=== PATIENT | female | born 1960 | race Caucasian/White ===

== ENCOUNTER 2020-11-16 05:55 | Inpatient (IN) | payer OTHER ==
[~2020-11-16] VITALS: Ht 165.1 cm; Wt 77.0 kg
[~2020-11-16 05:55] MED LIST: ABILIFY10 MG PO; ABILIFY15 MG PO; ACETAMINOPHEN325 M1 PO; ADULT LOW DOSE81 MG PO; ADVAIR 250-501 EACH INH; ALBUTEROL2.5 MG/3 M IH; ALPRAZOLAM1 M2 PO; APAP500 PO; AVELOX 400 MG400 M1 PO; BAYER CHEWABLE81 MG PO; CARAFATE 1 GM TA1 G1 PO; COLACE 100 MG100 MG PO; COLACE100 MG PO; CYMBALTA30 MG PO; CYMBALTA60 MG PO; DUONEB 2.5-0.5 M3 ML INH; IMITREX100 MG PO; JANUVIA100 MG PO; LANTUS SUBQ; LAXATIVE PEG 3317 GM PO; LEVAQUIN 500 M500 M2 PO; LEVAQUIN 500 M500 M5 PO; LEVOXYL75 MCG PO; LISINOPRIL2.5 MG; MAALOX ADVANCE355 M1 PO; MEDROLDOSEPACK PO; MIRALAX17 GM PO; MUCINEX600 MG PO; NAPRO60 GM; NAPROSYN250 MG PO; NAPROSYN500 MG PO; NICOTINE TRANSD14 M1 TRANSDERM; NICOTINE TRANSD21 M1 TD; NORCO 5-325 TA1 EACH PO; NOVOLOG100 UNIT/1; NOVOLOG100 UNIT/1 SUBQ; OMEPRAZOLE40 MG PO; PRAVACHOL40 MG PO; PREDNISONE 10 M10 M1; PREDNISONE 10 M10 M1 PO; PREDNISONE 10 M10 MG; PREDNISONE 20 M20 M1 PO; PREDNISONE 20 M20 MG PO; PREDNISONE 5 MG5 M1; PREDNISONE50 MG PO; PRILOSEC40 MG PO; PROTONIX40 M2 PO; QUETIAPINE FUM300 MG PO; REGLAN 10 MG TA10 MG PO; REGLAN 5 MG TAB5 MG PO; RESTORIL30 MG PO; RESTORIL7.5 MG PO; SEROQUEL 100 M100 M1 PO; SEROQUEL200 MG PO; SIMETHICON CHEW80 MG PO; SONATA5 M1 PO; SPIRIVA INH; TOPROL XL50 MG PO; ULTRAM 50MG TAB50 MG PO; VICODIN 5-3001 EACH PO; XANAX 0.5 MG0.5 M1 PO; XANAX1 MG PO; ZESTRIL20 MG PO; ZOFRAN ODT4 MG PO; ZOFRAN4 MG PO; ZOFRAN8 MG PO; ZPAK PO
[2020-11-16 05:56] VITALS: BP 137/83
[2020-11-16 06:24] LABS: HCO3 23.1 mmol/L (22.0-26.0); PCO2 45.1 mmHg (35.0-45.0); PO2 73.2 mmHg (80.0-100.0); sO2 93.6 % (92.0-98.0)
[2020-11-16 06:25] LABS: pH 7.327 (7.360-7.450)
[2020-11-16 06:27] LABS: ABSOLUTE NEUTROPHILS 6.3 thou/uL (1.4-8.2); BASOPHILS 0.1 % (0.0-2.0); HEMOGLOBIN 13.2 gm/dL (12.0-15.0); LYMPHOCYTES 26.9 % (24.0-44.0); MCH 30.1 pg (26.0-34.0); MCV 91.1 fL (80.0-100.0); MONOCYTES 4.5 % (1.0-8.0); PLATELET COUNT 319 thou/uL (150-400); POLYS 68.5 % (36.0-66.0); RBC 4.39 mil/uL (4.20-5.00); RDW 16.2 % (10.5-14.5); WBC 9.1 thou/uL (4.0-11.0)
[2020-11-16 06:34] LABS: ANION GAP 10 mmol/L (7-16); BUN 8 mg/dL (7-18); CALCIUM 8.6 mg/dL (8.5-10.1); CHLORIDE 104 mmol/L (98-107); CO2 25 mmol/L (21-32); CREATININE 0.8 mg/dL (0.6-1.0); GLUCOSE 170 mg/dL (74-106); POTASSIUM 3.7 mmol/L (3.5-5.1); SODIUM 139 mmol/L (136-145)
[2020-11-16 06:45] LABS: ALBUMIN 3.1 g/dL (3.4-5.0); DIRECT BILIRUBIN < 0.1 mg/dL (<0.1-0.2); LIPASE 53 U/L (73-393); MAGNESIUM 1.9 mg/dL (1.8-2.4); PHOSPHORUS 3.6 mg/dL (2.6-4.7); SGOT 9 U/L (15-37); SGPT 14 U/L (14-59); TOTAL BILIRUBIN 0.2 mg/dL (0.2-1.0); TROPONIN-I <0.06 ng/mL (<0.06)
[2020-11-16 09:50] VITALS: BP 118/58
--- NOTE | 2020-11-16 10:21 | EKG ---
[place] [address] [facility] [place] [address] ELECTROCARDIOGRAM REPORT Name: SANDRA ARMAS Room #: 170-6 ADM IN M.R.#: [id number] Admission: 11/16/20 Attend Phys: Pari Byers Discharge: Date of : 58 Report #: [id number] [facility] ED Test Date: 2020-11-16 Test Time: 09:56:25 Pat Name: SANDRA ARMAS Department: Room: 170 Gender: F Pin Game Machine Inspector: RAMIRO AGUILERA : 1960 Requested By: Braxton Gonzalez Order Number: [id number] MD: Thom Wray Measurements Intervals Dinosaur Rate: 71 P: 18 FL: 172 QRS: -28 QRSD: 100 T: 35 QT: 436 QTc: 474 Interpretive Statements Sinus rhythm Borderline left axis deviation Anterior infarct, old Compared to ECG 03/19/2014 13:17:13 Fusion complex(es) no longer present Myocardial infarct finding still present Electronically Signed On 11-16-2020 10:20:58 CDT by Thom Wray [email or web address] <ELECTRONICALLY SIGNED> By: Thom Wray MD, [facility] 11/16/20 1020 [phone] Thom Wray MD, [facility] /[facility]
[2020-11-16 15:13] VITALS: BP 131/68
[2020-11-16 17:43] LABS: BE(vivo) -1.1 mmol/L (-2 to +3); HCO3 24.5 mmol/L (22.0-26.0); PCO2 44.1 mmHg (35.0-45.0); PO2 59.2 mmHg (80.0-100.0); pH 7.362 (7.360-7.450); sO2 89.7 % (92.0-98.0)
--- NOTE | 2020-11-16 19:22 | NUR ---
PT ADMITTED FROM ER FOR SOB , PT IS A&OX3 ( PERSON, PLACE AND TIME), PT IS ON O2 6L/MIN/NC TO KEEP O2SAT 92-95%, PT 'S VS ARE STABLE, PT DENIES PAIN AT DAY SHIFT, PT HAS SOB WITH ACTIVITIES,
[2020-11-16 19:28] VITALS: BP 77/56
[2020-11-16 20:30] VITALS: BP 130/68
[2020-11-16 23:43] VITALS: BP 111/72
--- NOTE | 2020-11-17 03:43 | NUR ---
Patient making slow progress. Oxygenation optimal with 6L/Hi megan cannula. Short of breath with activity. Up to BSC x 1 assist. High fall risks, bed alarm non functional. Calls out appropriately for need to get out of bed. Slept well after prn Xanax. Swallowed oral medications without difficulty.
[2020-11-17 04:20] VITALS: BP 136/83
[2020-11-17 05:14] LABS: HEMATOCRIT 38.4 % (37.0-47.0); HEMOGLOBIN 12.6 gm/dL (12.0-15.0); MCH 30.1 pg (26.0-34.0); MCHC 32.8 g/dL (28.0-37.0); MCV 91.7 fL (80.0-100.0); RBC 4.19 mil/uL (4.20-5.00); RDW 16.5 % (10.5-14.5); WBC 10.7 thou/uL (4.0-11.0)
[2020-11-17 05:26] LABS: CALCIUM 8.5 mg/dL (8.5-10.1); CREATININE 0.7 mg/dL (0.6-1.0)
[2020-11-17 05:48] LABS: POTASSIUM 4.5 mmol/L (3.5-5.1)
[2020-11-17 08:30] VITALS: BP 144/72
[2020-11-17 09:20] LABS: BE(vivo) 0 mmol/L (-2 to +3); PCO2 37.2 mmHg (35.0-45.0); PO2 58.8 mmHg (80.0-100.0); pH 7.428 (7.360-7.450); sO2 91.3 % (92.0-98.0)
[2020-11-17 11:45] VITALS: BP 126/79
--- NOTE | 2020-11-17 11:59 | NUR ---
INITIAL ASSESSMENT: MANN reviewed chart and spoke with nursing and attending physician. Pt was admitted from home due to respiratory failure. Pt with hx of COPD. Pt is currently on 6L of O2. Pt is on IV abx. Pt has not received COVID vaccination. SW met with pt at bedside. Introduced role of SW. Pt is alert/orientated x 4. Pt reports she lives at home alone. Prior to admission, pt was independent with ADLs. Pt does have a walker and is normally on O2 at home. Pt's O2 is provided by [employer] [facility]. No stairs in her home. No hx of HH services or post-acute placement. Pt does not currently have a PCP. Pt states her insurance recently changed and she has yet to get established with a new PCP who is in-network with her insurance. Pt now has [employer] Medicare. Pt has Healthcare DPOA ppwk filled out and would like for it to be notarized. Pt has appointed her dtr, Marian as her DPOA. SW received approval from pt to call her dtrMarian. Marian had left voice message for SW to request DPOA ppwk to be notarized/witnessed. Nursing to call spiritual care or house cleaner for form to be notarized. MANN spoke with Marian, via phone to provide update and discuss DPOA ppwk. Marian verbalized understanding. MANN requested PT/OT evals to be ordered to evaluate pt for discharge needs. Will need prior auth for post-acute placement if needed. MANN is following to assist as needed with discharge planning.
--- NOTE | 2020-11-17 19:17 | NUR ---
RN ASSUMED PT'S CARE AT 0700-1900PM, PT IS A&OX4, PT IS ON O2 5L/MIN/NC , PT'S SOB HAS IMPROVED, PT IS CONTINUING IV ABX AND ANXIETY MANAGEMENT, PT'S VS ARE STABLE AT DAY SHIFT.
[2020-11-17 19:30] VITALS: BP 139/84
[2020-11-17 23:57] VITALS: BP 129/80
--- NOTE | 2020-11-18 03:34 | NUR ---
PROGRESS PT A/O X3, VSS, AFEBRILE, TELE INTACT READING /SRSB WITH RATES IN 50'S TO 60'S. LUNGS ARE COARSE IN [place]PPER [place], WITH INSPIRATORY WHEEZES AND A HARSH NON PRODUCTIVE COUGH. PT ON 5 TO 6 LITERS OF 02 SATS IN LOW 90'S. PT DENIES SOB AT REST AND IS BREATHING WITHOUT DIFFICULTY. IVF'S CONTINUE. ACCUCHECKS AND SSI CONTINUE. PT UP WITH 1 TO BSC. CONTINUE POC.
[2020-11-18 04:20] VITALS: BP 137/78
[2020-11-18 07:23] VITALS: BP 106/81
[2020-11-18 11:24] VITALS: BP 127/69
--- NOTE | 2020-11-18 13:17 | NUR ---
MANN reviewed chart and spoke with nursing and attending physician. Pt is slowly progressing towards goals for discharge. Pt is on 5L of O2. Pt is on IV abx and IV steroids. MANN met with pt at bedside to discuss discharge plan. Pt might be ready to discharge home over the weekend. Pt would like to have HH arranged. SW verified pt's home address. Pt does not currently have a PCP. SW explained that HH will most likely not accept pt without at PCP. Pt verbalized undestanding. MANN faxed HH referral to [facility] and spoke with intake. HH referral to be reviewed. Pt has home O2 in place through [employer] [facility]. If pt needs a portable tank for transportation home, [facility] will need to be called. MANN is following to assist as needed with discharge planning. [facility] HH-- [facility] (O2)--
[2020-11-18] MEDS ORDERED: ALPRAZOLAM XR3 MG PO (14:58)
--- NOTE | 2020-11-18 18:34 | NUR ---
RN ASSUMED PT'S CARE AT 0700, PT IS A&OX4, PT IS ON O2 5L/MIN/NC, PT GETS UP TO USE BSC, PT 'S VS ARE STABLE, PT IS CONTINUING IV ABX AND ANXIETY MANAGEMENT, PT DENIES PAIN AND SOB AT THIS TIME.
[2020-11-18 20:25] VITALS: BP 135/74
--- NOTE | 2020-11-19 01:23 | NUR ---
PT ALERT AND ORIENTED X4. PT RESTING QUIETLY PRESENTLY. NO S/S ANXIETY. NO C/O PAIN. UNLABORED ON 5LNC. BED DOWN CALL. LIGHT IN REACH. BED ALARM IS ON. BLADDER SCANED PT SINCE SHE DID NOT VOID WHEN SHE GOT UP TO BSC. SCANNED 174. LAUREN OFFER BSC IN AM AGAIN. NO S/S DISTRESS PRESENTLY.
[2020-11-19 04:02] VITALS: BP 136/71
--- NOTE | 2020-11-19 04:22 | NUR ---
PT PROGRESSING SLOWLY TOWARDS D/C GOALS. A&OX4. VSS. AFEBRILE. UNLABORED ON LNC. NO ANXIETY NOTED PRESENTLY. DENIED PAIN. WILL CONTINUE TO MONITOR PT FOR CHANGES.
--- NOTE | 2020-11-19 07:10 | NUR ---
RT FOUND PATIENT ON 5L. RT LOWERED OXYGEN TO 4L. PATIENT USES 4L AT HOME PATIENT HAS A JUNKY NPC. NO COMPLAINTS OF SHORTNESS OF BREATH.
[2020-11-19 07:43] VITALS: BP 143/73
[2020-11-19] MEDS ORDERED: IPRAT-ALBUT 0.5-3 ML INH (08:51)
[2020-11-19] MEDS ORDERED: PREDNISONE 20 M20 MG PO (08:52)
[2020-11-19] MEDS ORDERED: CEFUROXIME500 MG PO (08:52)
--- NOTE | 2020-11-19 10:41 | NUR ---
RT GIVE OXYGEN TANK TO PATIENT FOR CAR RIDE HOME CONSENT SIGNED.
[2020-11-19 10:47] VITALS: BP 143/73
[2020-11-19] MEDS ORDERED: NICOTINE1 EACH TRANSDERM (10:51)
--- NOTE | 2020-11-19 12:38 | NUR ---
RN ASSUMED PT'S CARE AT 0700AM, PT IS A&OX4, PT IS ON O2 4L/MIN/NC, PT'S SOB AND COUGHING HAVE IMPROVED, PT IS CONTINUING IV ABX AND ANXIETY MANAGEMENT, RN RECEIVED ORDER TO DC PT TO HOME, PT'S DAUGHTER WILL IMPORT COORDINATOR PT SOON, PT HAS O2 FROM RT FOR TRANSPORTATION TO HOME, PT HAS O2 AT HOME, PT UNDERSTANDS DC TEACHING WELL. PT DENIES PAIN AND SOB BY THIS TIME.
--- NOTE | 2020-11-19 14:03 | NUR ---
PT HAD A GOOD LUNCH, BOWLING BALL MOLD ASSEMBLER SENT PT WITH O2 4L/MIN/NC BY W/C TO MEET PT'S MARIANA IN HOSPITAL ER OUTSIDE DOOR TO GO HOME AT 1330PM.
== END 2020-11-19 14:16 | disposition home health service (06) | DRG 871 ==
LOC: ER 05:55 → EROBS 09:35 → 3W 09:35
PROVIDERS: Emergency Medicine; Internal Medicine Pulmonary Disease; ADMIT Hospitalist; ATTEND Hospitalist
PROC: 5A0935A Assistance with Respiratory Ventilation, Less than 24 Consecutive Hours, High Flow/Velocity Cannula (ICD-10-PCS; principal; 2020-11-16)
DX: A41.9 Sepsis, unspecified organism (principal); J18.9 Pneumonia, unspecified organism; J96.01 Acute respiratory failure with hypoxia; J96.02 Acute respiratory failure with hypercapnia; J44.1 Chronic obstructive pulmonary disease with (acute) exacerbation; J44.0 Chronic obstructive pulmonary disease with (acute) lower respiratory infection; J45.901 Unspecified asthma with (acute) exacerbation; F17.210 Nicotine dependence, cigarettes, uncomplicated; F31.9 Bipolar disorder, unspecified; I11.0 Hypertensive heart disease with heart failure; I50.9 Heart failure, unspecified; E11.9 Type 2 diabetes mellitus without complications; F41.9 Anxiety disorder, unspecified; K21.9 Gastro-esophageal reflux disease without esophagitis; E66.9 Obesity, unspecified; Z20.822 Contact with and (suspected) exposure to COVID-19; Z68.28 Body mass index [BMI] 28.0-28.9, adult; Z88.5 Allergy status to narcotic agent; Z88.0 Allergy status to penicillin; Z79.82 Long term (current) use of aspirin; Z79.4 Long term (current) use of insulin; Z79.899 Other long term (current) drug therapy
CPT/HCPCS: 10879